=== PATIENT | male | born 1930 | race Caucasian/White ===

== ENCOUNTER 2018-07-28 08:45 | Day surgery (SDC) | payer MEDICARE ==
[2018-07-27 08:55] VITALS: BMI 19.9
[~2018-07-28 08:45] MED LIST: ALPRAZolam 0.25 MG TAB PO PRN; ALPRAZolam 0.5 MG TAB PO PRN; ASPIRIN 325 MG TAB PO STA; ATORVASTATIN 80 MG TAB PO STA; NITROGLYCERIN SL TABS 0.4 MG TAB SUBLINGUAL PRN; SODIUM CHLORIDE 0.9% 1,000 ML in EMPTY BAG 1 BAG IV ONE
[2018-07-28 09:49] VITALS: TEMP 97.5
[2018-07-28] MEDS ORDERED: SODIUM CHLORIDE 0.9% 1,000 ML IV ONE (10:36)
[2018-07-28] MEDS: BENZOCAINE SPRAY 1 CAN MUCOUS MEM ONE ×2 (10:37→10:38)
[2018-07-28] MEDS ORDERED: fentaNYL (PF) 50 MCG/ML 2 ML AMP IVP ONE (10:38)
[2018-07-28] MEDS: MIDAZOLAM 2 MG/2 ML VIAL IVP ONE ×2 (10:38→10:40)
[2018-07-28] MEDS ORDERED: IV FLUID CONTINUATION 800 ML IV ONE (11:04)
[2018-07-28] MEDS ORDERED: LIDOCAINE 1% INJ 10MG/ML (20 ML MDV) SQ ONE (11:16)
[2018-07-28] MEDS ORDERED: IOPAMIDOL-370 125ML BTL INJ ONE (11:31)
[2018-07-28] MEDS ORDERED: SODIUM CHLORIDE 0.9% 1,000 ML IV SCH (11:45)
[2018-07-28] MEDS ORDERED: RX INFO: IV CONTRAST WAS GIVEN 1 EACH MISC MISCELLANE PRN (11:48)
[2018-07-28] MEDS ORDERED: ACETAMINOPHEN TAB 500 MG TAB PO PRN (11:51)
--- NOTE | 2018-07-28 12:41 | ECHOT ---
TRANSESOPHAGEAL ECHOCARDIOGRAM INDICATION: Severe mitral regurgitation. PROCEDURE NOTE: After obtaining informed consent, transesophageal echocardiogram is performed in left lateral position using an Omni plane probe. Local and IV sedation were obtained using Xylocaine spray, 2 mg of Versed and fentanyl. He tolerated the procedure well without any obvious immediate complications. Patient received moderate conscious sedation. Total sedation time was 15 minutes. FINDINGS: 1. Mitral valve, there is partial flail of the posterior mitral leaflet with severe anteriorly directed mitral regurgitation. There is reversal of flow in the pulmonary veins. 2. Aortic valve. Aortic valve is a 3-leaflet valve. There is no evidence of aortic stenosis or regurgitation. 3. Tricuspid valve shows moderate tricuspid regurgitation. 4. Interatrial septum, there is no evidence of [id number] shunt by color-flow Doppler or [id number] shunt by agitated saline contrast study. 5. Left atrium appears severely enlarged. 6. Right atrium and right ventricle seen within normal limits. 7. Left ventricle appears mildly enlarged with an ejection fraction of around 50%. 8. Aorta shows [id number]-[id number] atherosclerotic changes. CONCLUSION: 1. Severe mitral regurgitation secondary to partial flail of the posterior mitral leaflet. 2. Severe left atrial enlargement. 3. Ejection fraction of 50%. PLAN: Patient will undergo left heart catheterization and will be referred for mitral valve repair. MMODL / IJN: [id number] /
--- NOTE | 2018-07-28 12:52 | CC ---
CARDIAC CATHETERIZATION REPORT CARDIAC CATHETERIZATION NOTE: INDICATION: Severe mitral regurgitation. PROCEDURE NOTE: After obtaining informed consent, left heart catheterization was performed via the right femoral artery using standard Natty catheters. Patient tolerated the procedure well without any obvious immediate complications. Patient received moderate conscious sedation. Total sedation time was 17 minutes. Patient had femoral angiogram and Angio- Seal was deployed for hemostasis. FINDINGS: 1. HEMODYNAMICS: Left ventricular end-diastolic pressure is 16-18 mm. There is no significant gradient across aortic valve. 2. LEFT VENTRICULOGRAM: Left ventriculogram is performed in SINGH position and shows enlarged left ventricle with an ejection fraction of around 50%-55%. 3. There is 3+ mitral regurgitation with severely enlarged left atrium. ANGIOGRAPHIC DATA: 1. Left main coronary artery appears calcified but is free of significant stenosis. It divides into left anterior descending coronary artery and circumflex coronary artery. 2. Circumflex coronary artery shows mild nonobstructive disease. 3. LAD is free of significant disease, gives off a diagonal branch that shows a 40% to 50% stenosis involving the ostial portion. 4. Right coronary artery is a large dominant vessel and is free of significant disease. CONCLUSION: 1. Mild nonobstructive coronary artery disease. 2. Severe mitral regurgitation. PLAN: Patient will be referred to surgeon for mitral valve repair. MMODL / IJN: [id number] /
[2018-07-28 13:00] VITALS: RESP 16
[2018-07-28 16:09] VITALS: BP 153/86
[2018-07-28 16:42] VITALS: PULSE 62
[2018-07-28] MEDS ORDERED: AMIODARONE 200 MG TAB PO SCH (21:00)
[2018-07-28] MEDS ORDERED: APIXABAN 2.5 MG TABLET PO SCH (21:00)
[2018-07-29] MEDS ORDERED: FUROSEMIDE 20 MG TAB PO SCH (09:00)
[2018-07-29] MEDS ORDERED: NON-FORMULARY DRUG (Potassium Chloride [Klor-Con 10] 10 MEQ) PO SCH (09:00)
[2018-07-29] MEDS ORDERED: DOCUSATE 100 MG CAP PO SCH (09:00)
== END 2018-07-28 16:41 | disposition home or self-care (01) ==
LOC: CATHCVL 08:45
PROVIDERS: ATTEND Internal Medicine Cardiovascular Disease
DX: I08.1 Rheumatic disorders of both mitral and tricuspid valves (principal); I70.0 Atherosclerosis of aorta; I25.10 Atherosclerotic heart disease of native coronary artery without angina pectoris; I25.84 Coronary atherosclerosis due to calcified coronary lesion; Z72.0 Tobacco use; I48.0 Paroxysmal atrial fibrillation; F03.90 Unspecified dementia, unspecified severity, without behavioral disturbance, psychotic disturbance, mood disturbance, and anxiety; Z82.49 Family history of ischemic heart disease and other diseases of the circulatory system; Z79.01 Long term (current) use of anticoagulants; Z79.899 Other long term (current) drug therapy
CPT/HCPCS: 93312; 93320; 93325; 93458; 84132; C1760; C1769 ×2; C1894; J2250; J2001; J3010; Q9967

== ENCOUNTER 2018-07-29 09:11 | Emergency (ER) | payer MEDICARE ==
--- NOTE | 2018-07-29 09:25 | ED ---
General Adult HPI - General Stated complaint: RADHA Time Seen by Provider: 07/29/18 09:14 Source: patient, EMS, RN notes reviewed, old records reviewed - History of Present Illness Initial comments: 87 yo male presents for evaluation of dyspnea. History obtained from EMS and limited history from the patient. He states that he said dyspnea since yesterday. According to EMS patient had a heart catheterization yesterday. Review the medical record reveals patient had a transesophageal echo and heart cath performed on July 28. According to patient he has had dyspnea yesterday. Minimal cough. No fever. Denies chest pain although EMS reported that the patient's family had stated he had right-sided chest pain. No abdominal pain. - Related Data Home Medications Medication Instructions Recorded Confirmed Acetaminophen [Tylenol Extra 500 mg PO Q6H PRN 07/27/18 07/29/18 Strength] Apixaban [Eliquis] 2.5 mg PO BID 07/27/18 07/29/18 Docusate [Colace] 100 mg PO DAILY 07/27/18 07/29/18 Amiodarone [Cordarone] 200 mg PO BID 07/28/18 07/29/18 Furosemide [Lasix] 20 mg PO DAILY 07/28/18 07/29/18 Potassium Chloride [Klor-Con 10] 10 meq PO DAILY 07/28/18 07/29/18 Previous Rx's Medication Instructions Recorded Furosemide [Lasix] 20 mg PO DAILY #10 tab 07/29/18 Potassium Chloride [K-Tab ER] 10 meq PO DAILY #10 tablet.er 07/29/18 Allergies Allergy/AdvReac Type Severity Reaction Status Date / Time Penicillins Allergy Unknown Verified 07/29/18 09:43 Review of Systems ROS Statement: Those systems with pertinent positive or pertinent negative responses have been documented in the HPI. ROS Other: All systems not noted in ROS Statement are negative. Past Medical History Past Medical History: Atrial Fibrillation, Cancer, Dementia Additional Past Medical History / Comment(s): skin cancer, large left inguinal hernia, just moved back to area a month ago History of Any Multi-Drug Resistant Organisms: None Reported Additional Past Surgical History / Comment(s): repair of nasal fx., cataracts removed Past Anesthesia/Blood Transfusion Reactions: No Reported Reaction Smoking Status: Former smoker - Past Family History Mother Family Medical History: No Reported History General Exam General appearance: alert Head exam: Present: atraumatic, normocephalic Eye exam: Present: normal appearance, PERRL ENT exam: Present: normal exam Neck exam: Present: normal inspection. Absent: tenderness, meningismus Respiratory exam: Present: respiratory distress, rales Cardiovascular Exam: Present: regular rate, normal rhythm, systolic murmur GI/Abdominal exam: Present: soft, hernia (Soft left inguinal hernia, mild ecchymosis over the right groin, no hematoma, no thrill). Absent: distended, tenderness Extremities exam: Present: normal inspection, full ROM, tenderness, normal capillary refill. Absent: pedal edema Neurological exam: Present: alert, oriented X3 Psychiatric exam: Present: normal affect, normal mood Skin exam: Present: warm, dry, intact Course Vital Signs 07/29/18 07/29/18 07/29/18 09:13 09:21 09:30 Temperature 97.9 F Pulse Rate 63 65 Respiratory 22 18 Rate Blood Pressure 147/100 147/101 O2 Sat by Pulse 99 99 96 Oximetry 07/29/18 10:00 Temperature Pulse Rate 66 Respiratory 20 Rate Blood Pressure 137/94 O2 Sat by Pulse Oximetry EKG Findings - EKG Comments: EKG Findings:: EKG: Sinus rhythm with first-degree AV block, left atrial enlargement, mildly prolonged QT, rate of 63, DE interval 210, QRS duration 104 , QTC 505, no ST segment elevation or depression Medical Decision Making - Medical Decision Making 87-year-old male presenting for evaluation of dyspnea. Patient had recent diagnosis of mitral regurgitation. He had an echo which was transesophageal yesterday which showed an EF 50% and severe mitral regurgitation with leaflet abnormality. Patient had a heart cath is well through the right groin, this showed mild COPD, no obstructive process. Patient is not in overt heart failure , chest x-ray clear no pulmonary edema or pleural effusion. Patient is comfortable on room air. Laboratory studies reveal normal CBC, normal CMP, mild elevation in BNP of 1990. Given the patient's recent cardiology evaluation , I did discuss the case with Dr. Lim who is okay with discharge at this time. Patient will follow-up with the cardiothoracic surgeon on Wednesday as planned. Return with worsening or changing symptoms. - Lab Data Result diagrams: 07/29/18 09:23 07/29/18 09:23 Lab Results 07/29/18 07/29/18 07/29/18 Range/Units 09:23 09:23 09:23 WBC 5.7 (3.8-10.6) k/uL RBC 4.09 L (4.30-5.90) m/uL Hgb 12.7 L (13.0-17.5) gm/dL Hct 38.5 L (39.0-53.0) % MCV 94.3 (80.0-100.0) fL MCH 31.1 (25.0-35.0) pg MCHC 33.0 (31.0-37.0) g/dL RDW 14.3 (11.5-15.5) % Plt Count 191 (150-450) k/uL Neutrophils % 61 % Lymphocytes % 21 % Monocytes % 8 % Eosinophils % 7 % Basophils % 1 % Neutrophils # 3.5 (1.3-7.7) k/uL Lymphocytes # 1.2 (1.0-4.8) k/uL Monocytes # 0.4 (0-1.0) k/uL Eosinophils # 0.4 (0-0.7) k/uL Basophils # 0.0 (0-0.2) k/uL PT (9.0-12.0) sec INR (<1.2) APTT (22.0-30.0) sec Sodium 139 (137-145) mmol/L Potassium 4.3 (3.5-5.1) mmol/L Chloride 104 (98-107) mmol/L Carbon Dioxide 25 (22-30) mmol/L Anion Gap 10 mmol/L BUN 18 (9-20) mg/dL Creatinine 0.85 (0.66-1.25) mg/dL Est GFR (CKD-EPI)AfAm >90 (>60 ml/min/1.73 sqM) Est GFR (CKD-EPI)NonAf 79 (>60 ml/min/1.73 sqM) Glucose 104 H (74-99) mg/dL Calcium 9.2 (8.4-10.2) mg/dL Magnesium 2.2 (1.6-2.3) mg/dL Total Bilirubin 1.3 (0.2-1.3) mg/dL AST 29 (17-59) U/L ALT 19 L (21-72) U/L Alkaline Phosphatase 55 (38-126) U/L NT-Pro-B Natriuret Pep 1990 pg/mL Total Protein 6.6 (6.3-8.2) g/dL Albumin 3.4 L (3.5-5.0) g/dL 07/29/18 Range/Units 09:23 WBC (3.8-10.6) k/uL RBC (4.30-5.90) m/uL Hgb (13.0-17.5) gm/dL Hct (39.0-53.0) % MCV (80.0-100.0) fL MCH (25.0-35.0) pg MCHC (31.0-37.0) g/dL RDW (11.5-15.5) % Plt Count (150-450) k/uL Neutrophils % % Lymphocytes % % Monocytes % % Eosinophils % % Basophils % % Neutrophils # (1.3-7.7) k/uL Lymphocytes # (1.0-4.8) k/uL Monocytes # (0-1.0) k/uL Eosinophils # (0-0.7) k/uL Basophils # (0-0.2) k/uL PT 11.1 (9.0-12.0) sec INR 1.2 H (<1.2) APTT 26.8 (22.0-30.0) sec Sodium (137-145) mmol/L Potassium (3.5-5.1) mmol/L Chloride (98-107) mmol/L Carbon Dioxide (22-30) mmol/L Anion Gap mmol/L BUN (9-20) mg/dL Creatinine (0.66-1.25) mg/dL Est GFR (CKD-EPI)AfAm (>60 ml/min/1.73 sqM) Est GFR (CKD-EPI)NonAf (>60 ml/min/1.73 sqM) Glucose (74-99) mg/dL Calcium (8.4-10.2) mg/dL Magnesium (1.6-2.3) mg/dL Total Bilirubin (0.2-1.3) mg/dL AST (17-59) U/L ALT (21-72) U/L Alkaline Phosphatase (38-126) U/L NT-Pro-B Natriuret Pep pg/mL Total Protein (6.3-8.2) g/dL Albumin (3.5-5.0) g/dL Disposition Clinical Impression: Mitral valve regurgitation Disposition: HOME SELF-CARE Condition: Good Instructions: Mitral Regurgitation (ED) Additional Instructions: Please follow up as planned on Wednesday with cardiothoracic surgery. Prescriptions: Furosemide [Lasix] 20 mg PO DAILY #10 tab Potassium Chloride [K-Tab ER] 10 meq PO DAILY #10 tablet.er Is patient prescribed a controlled substance at d/c from ED?: No Referrals: None,Stated [Primary Care Provider] - 1-2 days Gt Pineda MD [STAFF PHYSICIAN] - 1-2 days
[2018-07-29 09:29] VITALS: TEMP 97.9
[2018-07-29 09:54] LABS: Basophils % (A) 1 %; Eosinophils # (A) 0.4 k/uL (0-0.7); Eosinophils % (A) 7 %; HCT 38.5 % (39.0-53.0); HGB 12.7 gm/dL (13.0-17.5); Lymphocytes # (A) 1.2 k/uL (1.0-4.8); Lymphocytes % (A) 21 %; MCH 31.1 pg (25.0-35.0); MCV 94.3 fL (80.0-100.0); Mean Platelet Volume 7.2; Monocytes # (A) 0.4 k/uL (0-1.0); Monocytes % (A) 8 %; Neutrophils # (A) 3.5 k/uL (1.3-7.7); Neutrophils % (A) 61 %; Platelet Count 191 k/uL (150-450); RBC 4.09 m/uL (4.30-5.90); RDW 14.3 % (11.5-15.5); WBC 5.7 k/uL (3.8-10.6)
[2018-07-29 10:03] LABS: INR 1.2 (<1.2); Partial Thromboplastin Time 26.8 sec (22.0-30.0); Prothrombin Time 11.1 sec (9.0-12.0)
[2018-07-29 10:05] LABS: ALT 19 U/L (21-72); AST 29 U/L (17-59); Albumin 3.4 g/dL (3.5-5.0); Alkaline Phosphatase 55 U/L (38-126); Anion Gap 10 mmol/L; Blood Urea Nitrogen 18 mg/dL (9-20); Calcium 9.2 mg/dL (8.4-10.2); Carbon Dioxide 25 mmol/L (22-30); Chloride 104 mmol/L (98-107); Glucose 104 mg/dL (74-99); Magnesium 2.2 mg/dL (1.6-2.3); Potassium 4.3 mmol/L (3.5-5.1); Sodium 139 mmol/L (137-145); Total Bilirubin 1.3 mg/dL (0.2-1.3); Total Protein 6.6 g/dL (6.3-8.2)
--- NOTE | 2018-07-29 10:05 | XR ---
EXAMINATION TYPE: XR chest 2V DATE OF EXAM: 07/29/2018 COMPARISON: NONE HISTORY: Shortness of breath TECHNIQUE: Frontal and lateral views of the chest are obtained. FINDINGS: Scattered senescent parenchymal changes noted. Hyperinflation compatible with COPD. No evidence for infiltrate. No evidence for atelectasis. Small effusions suggested. Heart size is stable. Mediastinal structures are stable and grossly unremarkable. No evidence for hilar prominence. Degenerative changes dorsal spine. IMPRESSION: 1. No evidence for acute pulmonary disease.
[2018-07-29 11:36] VITALS: BP 153/95; PULSE 69; RESP 16
== END 2018-07-29 11:36 | disposition home or self-care (01) ==
LOC: EC 09:11
DX: I34.0 Nonrheumatic mitral (valve) insufficiency (principal); J44.9 Chronic obstructive pulmonary disease, unspecified; K40.90 Unilateral inguinal hernia, without obstruction or gangrene, not specified as recurrent; R79.89 Other specified abnormal findings of blood chemistry; I48.91 Unspecified atrial fibrillation; Z87.891 Personal history of nicotine dependence; Z88.0 Allergy status to penicillin; Z79.01 Long term (current) use of anticoagulants; Z79.899 Other long term (current) drug therapy; Z95.818 Presence of other cardiac implants and grafts; Z85.828 Personal history of other malignant neoplasm of skin
CPT/HCPCS: 36415; 71046; 80053; 83735; 83880; 85025; 85610; 85730; 93005; 99285